=== PATIENT | male | born 1950 | race Caucasian/White ===

== ENCOUNTER → 2021-11-01 | Outpatient (CLI) | payer MEDICARE, OTHER ==
[~2021-11-01] MED LIST: OMEG1CAP30 PO; TAMS.4ER PO; THERA1 EACH PO
== END | disposition home or self-care (01) ==
LOC: LAB SHORT 15:06
DX: L72.3 Sebaceous cyst (principal)
CPT/HCPCS: 87070; 87075; 87077; 87147; 87186; 87205